=== PATIENT | male | born 1985 | race Two or more races ===

== ENCOUNTER 2019-07-08 21:30 | Emergency (ER) | payer SELFPAY ==
[~2019-07-08] VITALS: Ht 180.3 cm; Wt 74.8 kg
--- NOTE | 2019-07-08 21:58 | NUR ---
PT PRESENTED TO THE ER WITH A C/O LOWER NECK PAIN S/P 1ST TIME AT [employer]. PT STATED THAT HIS MUSCLE AT THE BASE OF THE NECK HURTS WITH MOVEMENT. PT ALSO C/O PAIN THAT RADIATES FROM HIS RT WRIST TO RT DELTOID WHEN HE MOVES HIS HEAD LT OR RT. PT AMBULATED IN TO THE ER WITH A STEADY GAIT.
--- NOTE | 2019-07-08 22:15 | NUR ---
Kee malcolm in ED - 07/08/19 at [email or web address] COOK IS A TE BEDSIDE.
--- NOTE | 2019-07-08 22:15 | NUR ---
DR. COOK IS AT THE BEDSIDE.
[2019-07-08] MEDS ORDERED: KETOROLAC TROMETHAMINE INJ 60 MG/2 ML VIAL IM ONE ×2 (22:26→22:30)
--- NOTE | 2019-07-08 23:28 | NUR ---
Patient discharged to home in stable condition. Written and verbal after care instructions given. Patient verbalizes understanding of instruction AND RX. 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 PT AMBULATED OUT WITH A STEADY GAIT. VSS. NAD NOTED.
[2019-07-08 23:30] VITALS: BP 117/67
== END 2019-07-08 23:31 | disposition home or self-care (01) ==
LOC: ER 21:33
DX: M54.10 Radiculopathy, site unspecified (principal); F17.200 Nicotine dependence, unspecified, uncomplicated
CPT/HCPCS: 72125; 96372; 99284; J1885